=== PATIENT | male | born 1965 | race Caucasian/White ===

== ENCOUNTER → 2016-09-12 | Outpatient (CLI) | payer BC ==
[~2016-09-12] MED LIST: ABACAVIR PO; ABILIFY 5 MG TAB5 M1 PO; ACETAMINOPHEN-1 EAC1 PO; AMBEREN OR; AMBIEN; AMBIEN CR12.5 MG PO; AMBIEN OR; AMBIENCR PO; ARIPIPRAZOLE5 MG PO; ASPIR 8181 MG PO; ATIVAN1 MG PO; ATORVASTATIN PO; BENTYL 20 MG TA20 M1 PO; CALCIUM 600 +1 EAC1 OR; CALCIUM 600 +1 EAC1 PO; CARAFATE1 GM/10 ML PO; CELEXA 20 MG TA20 MG PO; CHANTIX1 MG PO; CIPRO500 MG PO; CITALOPRAM PO; CLONAZEPAM; CLONAZEPAM 0.50.5 M1 PO; CLONAZEPAM 1 MG1 M1 PO; COLACE100 MG PO; DEPO-TESTO100 MG/1 M IM; DEPO-TESTO200 MG/1 M IM; DESYREL100 MG PO; DIFLUCAN100 MG PO; EPZICOM; EPZICOM PO; EPZICOM1 TA1 PO; FISH OIL 1,0001 EAC5 PO; FISH OIL 1,0001 EAC7 OR; FISHOIL PO; FLAGYL500 MG PO; FLEXERIL PO; FLUCONAZOLE 10100 MG PO; HYDROCODONE-AP1 EAC6 PO; HYDROCODONE-APA1 TA1 PO; HYTRIN 5 M5 MG/1 CAP PO; LAMIVUDINE PO; LEXAPRO20 MG PO; LEXIVA700 MG PO; LIPITOR; LIPITOR10 MG PO; LIPITOR20 MG PO; LISINOPRIL10 MG OR; LISINOPRIL20 MG PO; LOMOTIL TABLET1 EACH PO; LONOX PO; LUNESTA3 MG PO; METOCLOPRAMIDE10 MG PO; MULTIVITAMINS PO; NABUMETONE 500500 M1 PO; NAPROSYN500 MG PO; NEURONTIN 300300 M1 PO; NEURONTIN 300M300 M2 PO; NORCO 10-325 T1 EACH PO; NORCO 5-325 TA1 EACH PO; NORCO 7.5-3251 EACH PO; NORFLEX100 MG PO; NORVIR100 M1 PO; NORVIR100 MG PO; NYSTATIN 1100000 U/M SW&SWALLOW; OMEPRAZOLE PO; OMEPRAZOLE40 MG; OMEPRAZOLE40 MG PO; ONDANSETRON HCL4 M2 PO; PERCOCET 10-321 EACH PO; PERCOCET PO; PRILOSEC40 MG PO; PROPRANOLOL 1010 MG PO; RELAFEN750 MG PO; RISPERDAL; ROVIN-CF OF TA1 EACH OR; TAMSULOSIN HCL0.4 M1 PO; VALTREX1000 MG PO; VITAMIN B-12500 MCG PO; XANAX 0.5 MG0.5 MG PO; XANAX XR1 MG PO; XANAX1 MG PO; ZOFRAN ODT4 MG DISSOLVE; ZOFRAN ODT4 MG PO; ZOLPIDEM TART12.5 M1 PO; ZOLPIDEM TART12.5 MG PO; [UNRECOGNIZED DRUG - OTHER]
== END ==
LOC: RAD 10:07
DX: M48.54XA Collapsed vertebra, not elsewhere classified, thoracic region, initial encounter for fracture (principal)

== ENCOUNTER 2016-10-05 16:50 | Emergency (ER) | payer BC ==
[~2016-10-05] VITALS: Ht 175.3 cm; Wt 79.4 kg
[2016-10-05 17:21] LABS: ABSOLUTE NEUTROPHILS 5.6 thou/uL (1.4-8.2); BASOPHILS 0.4 % (0.0-2.0); EOSINOPHILS 0.7 % (0.0-3.0); HEMATOCRIT 44.9 % (42.0-52.0); HEMOGLOBIN 15.4 gm/dL (14.0-18.0); LYMPHOCYTES 29.5 % (24.0-44.0); MCH 30.6 pg (26.0-34.0); MCHC 34.4 g/dL (28.0-37.0); MCV 89.1 fL (80.0-100.0); MONOCYTES 4.4 % (1.0-8.0); PLATELET COUNT 284 thou/uL (150-400); RBC 5.04 mil/uL (4.50-6.00); RDW 15.2 % (10.5-14.5); WBC 8.7 thou/uL (4.0-11.0)
[2016-10-05 17:22] LABS: MANUAL DIFF NO
[2016-10-05 17:30] LABS: CALCIUM 9.4 mg/dL (8.5-10.1); POTASSIUM 4.3 mmol/L (3.5-5.1)
[2016-10-05 17:34] LABS: ALBUMIN 4.3 g/dL (3.4-5.0); DIRECT BILIRUBIN 0.1 mg/dL (<0.1-0.3); TOTAL BILIRUBIN 0.5 mg/dL (<0.1-1.0); TOTAL PROTEIN 7.3 g/dL (6.4-8.2)
[2016-10-05 18:05] LABS: URINE BILIRUBIN NEGATIVE (Negative); URINE BLOOD NEGATIVE (Negative); URINE COLOR YELLOW; URINE GLUCOSE-RANDOM* NEGATIVE (Negative); URINE KETONES NEGATIVE (Negative); URINE NITRITE NEGATIVE (Negative); URINE PROTEIN (DIPSTICK) NEGATIVE (Negative); URINE UROBILINOGEN 0.2 E.U./dl (0.2-1.0)
[2016-10-05] MEDS ORDERED: BENTYL 20 MG TA20 M1 PO (18:14)
[2016-10-05] MEDS ORDERED: ONDANSETRON HCL4 M2 PO (18:14)
== END 2016-10-05 19:00 | disposition home or self-care (01) ==
LOC: ER 16:50
PROVIDERS: Nurse Practitioner
DX: R11.2 Nausea with vomiting, unspecified (principal); R10.32 Left lower quadrant pain; I10 Essential (primary) hypertension; F17.210 Nicotine dependence, cigarettes, uncomplicated; Z21 Asymptomatic human immunodeficiency virus [HIV] infection status; Z88.8 Allergy status to other drugs, medicaments and biological substances

== ENCOUNTER 2016-11-03 18:00 | Observation (INO) | payer BC ==
[~2016-11-03] VITALS: Ht 175.3 cm; Wt 78.9 kg
--- NOTE | ~2016-11-03 | H ---
[facility] [address] [place] [address] HISTORY AND PHYSICAL Name: PRUDENCIO HINES Room #: 427-P [facility] M..#: [id number] Admission: 11/03/16 Attend Phys: Omari Mullen MD Discharge: Date of : 67 Report #: [id number] THIS REPORT FOR: //name// CC: Ck Mullen DATE OF SERVICE: 11/03/2016 CHIEF COMPLAINT: Rectal bleeding. 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 He reported to straining to have a hard bowel movement and had some bleeding per rectum. After that, he was up walking the aisle on the plane, when he felt lightheaded and passed out. His co-workers were able to help him to a seat and he improved. Once he returned to [place], he went to [facility]. There, he reports a CT scan of the abdomen was obtained, which was unremarkable. He also says that his lab work was unremarkable and he was discharged to home. However, he had another bleeding episode and came to the emergency room here. He said he has not had any rectal bleeding since yesterday afternoon, now approaching almost 24 hours. 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 He is scheduled to see a rectal surgeon later this month for removal. Previously, he has had a normal colonoscopy approximately one year ago. PAST MEDICAL HISTORY: HIV, hypertension, dyslipidemia, testosterone deficiency and chronic thoracic spine pain. He has had a history of abdominal pain with admission and history of admission for GI bleed. PAST SURGICAL HISTORY: Appendectomy. FAMILY HISTORY: Noncontributory. SOCIAL HISTORY: No known chronic alcohol. He does smoke, but he is trying to quit. ALLERGIES: No medication allergies. MEDICATIONS: Please see his lengthy list. He is on 3 antiviral medications, lisinopril, propranolol, Lipitor, Testosterone replacement, omeprazole, hydrocodone and dicyclomine. He was taking Colace at home. REVIEW OF SYSTEMS: Denies headache, chest pain, nausea, vomiting, dysuria, syncope or fall. [address] [address] HISTORY AND PHYSICAL Name: PRUDENCIO HINES Room #: [address] [place] [address] Clarissa#: [id number] Admission: 11/03/16 Attend Phys: Omari Mullen MD Discharge: Date of : 67 Report #: [id number] PHYSICAL EXAMINATION: VITAL SIGNS: Temperature 36.4, pulse 65, respirations 17, blood pressure 139/89 and O2 sat 99% on room air. GENERAL: He is awake and alert, in no distress. LUNGS: Clear. HEART: Regular. ABDOMEN: Soft. Normoactive bowel sounds. EXTREMITIES: No edema. ASSESSMENT: 1. Lower gastrointestinal bleed. 2. Hypertension. 3. Human immunodeficiency virus. 4. Essential tremor. 5. Recent syncopal episode, likely sounds vasovagal, following bowel movement yesterday. PLAN: I will continue his medications from home, other than his aspirin. I will ask Dr. Garcia to see him to see if another flexible sigmoidoscopy is indicated. I will lower his pain medication which may be contributing to chronic abdominal crampy pain, but also clearly with the constipation, try lactulose and stool softeners. This will probably be an ongoing issue until he has surgical treatment for the condyloma. <ELECTRONICALLY SIGNED> By: Ck De La Cruz MD 11/05/16 0959 1042 1143 Ck De La Cruz MD /nt
--- NOTE | ~2016-11-03 | D ---
[facility] [place] [address] [place] [address] DISCHARGE SUMMARY Name: PRUDENCIO HINES Room #: 427-P [facility] Joycelyn Romo#: [id number] Admission: 11/03/16 Attend Phys: Omari Mullen MD Discharge: 11/05/16 Date of : 67 Report #: [id number] THIS REPORT FOR: //name// CC: Ck Mullen DATE OF SERVICE: 11/05/2016 FINAL DIAGNOSES: 1. Lower gastrointestinal bleed. 2. Internal hemorrhoid. 3. Chronic abdominal pain. 4. Constipation induced ____. 5. Human immunodeficiency virus. 6. Chronic thoracic back pain. HOSPITAL COURSE: The patient was admitted with abdominal pain and lower GI bleed. Hemoglobin remained stable here and he had no further bleeding. He has had a recent flex sig, which revealed internal hemorrhoid and internal condyloma with anal fissure. GI felt this was the source of his bleeding. He is scheduled to have surgical excision later in the month as an outpatient. Other home medications were continued. We did decrease the hydrocodone. Add lactulose to help alleviate his constipation. PHYSICAL EXAMINATION: GENERAL: On the day of discharge, he is awake and alert. VITAL SIGNS: Stable. LUNGS: Clear. HEART: Regular. ABDOMEN: Soft. EXTREMITIES: Showed no edema. We discussed the discharge plan and medications. Disposition to be discharged to home with diet and activity as tolerated. Follow up with his surgeon as scheduled later in the month. Medications will continue with the exception of no aspirin, Anusol-HC suppository daily and decrease hydrocodone to 7.5 mg 2 tabs 4 times a day with plan to slowly wean as an outpatient. <ELECTRONICALLY SIGNED> By: Ck De La Cruz MD 11/06/16 0957 1002 2210 Ck De La Cruz MD /nt
[2016-11-03 18:01] VITALS: BP 144/94
[2016-11-03 19:54] LABS: ABSOLUTE NEUTROPHILS 3.7 thou/uL (1.4-8.2); BASOPHILS 0.4 % (0.0-2.0); EOSINOPHILS 1.8 % (0.0-3.0); HEMATOCRIT 38.8 % (42.0-52.0); HEMOGLOBIN 13.2 gm/dL (14.0-18.0); LYMPHOCYTES 39.4 % (24.0-44.0); MCH 30.2 pg (26.0-34.0); MCV 88.7 fL (80.0-100.0); MONOCYTES 7.3 % (1.0-8.0); PLATELET COUNT 228 thou/uL (150-400); POLYS 51.1 % (36.0-66.0); RBC 4.37 mil/uL (4.50-6.00); RDW 17.4 % (10.5-14.5); WBC 7.2 thou/uL (4.0-11.0)
[2016-11-03 19:56] LABS: MANUAL DIFF NO
[2016-11-03 20:01] LABS: ANION GAP 10 mmol/L (7-16); BUN 11 mg/dL (7-18); CALCIUM 9.1 mg/dL (8.5-10.1); CHLORIDE 108 mmol/L (98-107); CO2 23 mmol/L (21-32); CREATININE 0.9 mg/dL (0.7-1.3); GLUCOSE 90 mg/dL (74-106); POTASSIUM 3.9 mmol/L (3.5-5.1); SODIUM 141 mmol/L (136-145)
[2016-11-03 20:05] LABS: ALKALINE PHOSPHATASE 79 U/L (46-116); DIRECT BILIRUBIN < 0.1 mg/dL (<0.1-0.3); SGOT 22 U/L (15-37); SGPT 22 U/L (30-65); TOTAL BILIRUBIN 0.3 mg/dL (<0.1-1.0); TOTAL PROTEIN 7.2 g/dL (6.4-8.2)
[2016-11-03 23:09] VITALS: BP 133/85
[2016-11-04 04:23] VITALS: BP 130/63
[2016-11-04 06:17] LABS: HEMOGLOBIN 12.4 gm/dL (14.0-18.0); MCHC 33.6 g/dL (28.0-37.0); MCV 89.3 fL (80.0-100.0); RBC 4.14 mil/uL (4.50-6.00); RDW 17.3 % (10.5-14.5)
[2016-11-04 07:48] VITALS: BP 139/89
[2016-11-04 16:07] VITALS: BP 142/91
[2016-11-04 20:30] VITALS: BP 127/66
[2016-11-05 04:30] VITALS: BP 118/80
[2016-11-05 07:42] VITALS: BP 133/86
[2016-11-05] MEDS ORDERED: LACTULOSE10 GM/153 PO (09:41)
[2016-11-05] MEDS ORDERED: ZOFRAN ODT4 MG DISSOLVE (09:42)
[2016-11-05] MEDS ORDERED: ANUCORT-HC25 MG RECTAL (09:42)
[2016-11-05] MEDS ORDERED: HYDROCODONE-APA1 TA1 PO (09:44)
[2016-11-05 12:50] VITALS: BP 133/86
[2016-11-05 13:13] VITALS: BP 133/86
== END 2016-11-05 13:15 | disposition home or self-care (01) ==
LOC: ER 18:00 → EROBS 20:58 → 4E 20:58
PROVIDERS: Emergency Medicine
DX: K92.2 Gastrointestinal hemorrhage, unspecified (principal); I10 Essential (primary) hypertension; E78.5 Hyperlipidemia, unspecified; M54.6 Pain in thoracic spine; G89.29 Other chronic pain; G25.0 Essential tremor; R11.2 Nausea with vomiting, unspecified; R55 Syncope and collapse; F41.9 Anxiety disorder, unspecified

== ENCOUNTER 2016-11-21 10:47 | Emergency (ER) | payer BC ==
[~2016-11-21] VITALS: Ht 175.3 cm; Wt 73.5 kg
[~2016-11-21 10:47] MED LIST changes: +ANUCORT-HC25 MG RECTAL; +LACTULOSE10 GM/153 PO
[2016-11-21 12:04] LABS: ABSOLUTE NEUTROPHILS 5.7 thou/uL (1.4-8.2); BASOPHILS 0.3 % (0.0-2.0); EOSINOPHILS 0.2 % (0.0-3.0); HEMATOCRIT 41.8 % (42.0-52.0); HEMOGLOBIN 14.1 gm/dL (14.0-18.0); LYMPHOCYTES 9.9 % (24.0-44.0); MCH 30.2 pg (26.0-34.0); MCHC 33.7 g/dL (28.0-37.0); MCV 89.7 fL (80.0-100.0); MONOCYTES 1.5 % (1.0-8.0); PLATELET COUNT 184 thou/uL (150-400); POLYS 88.1 % (36.0-66.0); RBC 4.66 mil/uL (4.50-6.00); RDW 18.8 % (10.5-14.5); WBC 6.4 thou/uL (4.0-11.0)
[2016-11-21 12:05] LABS: MANUAL DIFF NO
[2016-11-21 12:10] LABS: CALCIUM 9.5 mg/dL (8.5-10.1); CREATININE 0.9 mg/dL (0.7-1.3); POTASSIUM 4.2 mmol/L (3.5-5.1)
[2016-11-21 12:14] LABS: ALBUMIN 4.1 g/dL (3.4-5.0); DIRECT BILIRUBIN 0.1 mg/dL (<0.1-0.3); TOTAL BILIRUBIN 0.5 mg/dL (<0.1-1.0); TOTAL PROTEIN 7.6 g/dL (6.4-8.2)
[2016-11-21 14:19] LABS: URINE BILIRUBIN NEGATIVE (Negative); URINE BLOOD NEGATIVE (Negative); URINE COLOR YELLOW; URINE GLUCOSE-RANDOM* TRACE (Negative); URINE KETONES NEGATIVE (Negative); URINE LEUKOCYTES-REFLEX NEGATIVE (Negative); URINE PROTEIN (DIPSTICK) NEGATIVE (Negative); URINE UROBILINOGEN 0.2 E.U./dl (0.2-1.0)
[2016-11-21] MEDS ORDERED: ZOFRAN ODT4 MG PO (14:41)
[2016-11-21] MEDS ORDERED: HYDROCODONE-APA1 TA1 PO (14:41)
== END 2016-11-21 14:43 | disposition home or self-care (01) ==
LOC: ER 10:47
PROVIDERS: Emergency Medicine
DX: R11.2 Nausea with vomiting, unspecified (principal); R10.84 Generalized abdominal pain; R19.7 Diarrhea, unspecified; I10 Essential (primary) hypertension; F17.210 Nicotine dependence, cigarettes, uncomplicated; Z91.048 Other nonmedicinal substance allergy status

== ENCOUNTER → 2017-01-17 | Outpatient (CLI) | payer BC ==
[~2017-01-17] VITALS: Ht 175.3 cm; Wt 76.3 kg
[~2017-01-17] MED LIST changes: +VOLTAREN GEL 1100 G1 TOP
--- NOTE | ~2017-01-17 | HPC ---
[facility] [address] [place] [address] PAIN MANAGEMENT CONSULTATION Name: HINESPRUDENCIO RODRIGUEZ Room #: [facility] Samuel.#: [id number] Admission: 01/17/17 Attend Phys: Colt Marquez DO Discharge: Date of : 67 Report #: [id number] THIS REPORT FOR: //name// CC: Ck Marquez The patient is a very pleasant 52-year-old gentleman, last seen in the pain clinic on March 2016 for cervical radicular symptoms. The patient has pain in the neck, right upper shoulder and upper arm. He has had excellent relief with cervical steroid injections, last injection was 04/12/2016. Prior to had 2 injections in December of 2012 and 2 injections beginning of 2012. He returns to pain clinic today noting symptoms have begun to recur with pain in the neck, upper left scapula and shoulder. Pain is exacerbated with cervical range of motion. He incidentally has some mid back pain. Prior had been found to have an old T11 compression fracture at this level. The patient rates his pain a 9 on a VAS, notes the pain is exacerbated with range of motion, bending and pressure. PHYSICAL EXAMINATION: Shows a 52-year-old gentleman, BMI is 24.8 kilograms per meter squared. Vital signs stable. Grossly positive Lhermitte's. Pain going into the right deltoid. Strength is diminished. Tenderness over the shoulder itself. No discrete trigger points noted. He does have some midline tenderness in the low thoracic area. No discrete trigger points are noted here either. ASSESSMENT: Symptomatic cervical radiculopathy by clinical exam and history. RECOMMENDATION: Cervical epidural injection under fluoroscopy today. Both provided prescription for Voltaren gel topically to the mid back area. Follow up simply as needed. ASSESSMENT: Symptomatic cervical radiculopathy, greater than 60% improvement for many months following prior cervical epidural injection. He is status post anterior cervical disk fusion at C5-C6. PROCEDURE: Midline epidural injection under fluoroscopy. INDICATION: Cervical radiculopathy status post ACDF. PROCEDURE NOTE: After written and informed consent was obtained including risk of dural puncture, spinal cord trauma, paralysis and increased pain, the patient was taken to the fluoroscopy suite and placed in the prone position, with appropriate abdominal bolstering, neck was flexed, palms under the thighs. Skin was prepped with ChloraPrep. Sterile draping was applied. Skin wheal with 1% Xylocaine was raised. A 22-gauge 3-1/2 inch epidural Tuohy needle was placed via a midline approach at the C7-T1 interspace, advanced under biplanar [address] [address] PAIN MANAGEMENT CONSULTATION Name: PRUDENCIO HINES Room #: [facility] Clarissa#: [id number] Admission: 01/17/17 Attend Phys: Colt Marquez DO Discharge: Date of : 67 Report #: [id number] fluoroscopy using continuous loss of resistance. With appropriate loss of resistance at the expected depth on lateral view, the glass loss of resistance syringe was disconnected. A low volume extension tubing was connected to the needle and a 5 mL syringe. Negative aspiration for cerebrospinal fluid or blood was noted. A 1 mL of Omnipaque was injected which showed spread within the epidural space on biplanar fluoroscopy. This was followed with 80 mg of triamcinolone plus 1 mL of 1.5% preservative Xylocaine. Needle was withdrawn to the interspinous ligament, 0.5 mL of Xylocaine was used to flush the needle. The needle was then completely withdrawn. The area was cleansed. Band-Aid was applied. The patient was allowed to move off the procedure table and ambulated to the recovery room, monitored for an appropriate period of time, discharged in good and stable condition. By: 1523 2228 Colt Marquez DO /giovany
[2017-01-17 14:05] VITALS: BP 137/82
== END | disposition home or self-care (01) ==
LOC: PAIN 07:09
DX: M54.12 Radiculopathy, cervical region (principal); F17.210 Nicotine dependence, cigarettes, uncomplicated; Z98.890 Other specified postprocedural states; Z79.899 Other long term (current) drug therapy

== ENCOUNTER 2017-02-12 17:26 | Emergency (ER) | payer BC ==
[~2017-02-12] VITALS: Ht 175.3 cm; Wt 79.4 kg
[2017-02-12 18:15] LABS: URINE BILIRUBIN NEGATIVE (Negative); URINE BLOOD NEGATIVE (Negative); URINE COLOR YELLOW; URINE GLUCOSE-RANDOM* NEGATIVE (Negative); URINE KETONES NEGATIVE (Negative); URINE LEUKOCYTES-REFLEX NEGATIVE (Negative); URINE PROTEIN (DIPSTICK) NEGATIVE (Negative); URINE SPECIFIC GRAVITY 1.015 (1.003-1.035); URINE UROBILINOGEN 0.2 E.U./dl (0.2-1.0)
[2017-02-12 18:25] LABS: ABSOLUTE NEUTROPHILS 7.7 thou/uL (1.4-8.2); BASOPHILS 0.6 % (0.0-2.0); EOSINOPHILS 0.4 % (0.0-3.0); HEMATOCRIT 42.9 % (42.0-52.0); HEMOGLOBIN 14.6 gm/dL (14.0-18.0); LYMPHOCYTES 18.5 % (24.0-44.0); MCH 32.3 pg (26.0-34.0); MONOCYTES 5.6 % (1.0-8.0); PLATELET COUNT 218 thou/uL (150-400); POLYS 74.9 % (36.0-66.0); RBC 4.51 mil/uL (4.50-6.00); WBC 10.2 thou/uL (4.0-11.0)
[2017-02-12 18:30] LABS: MANUAL DIFF NO
[2017-02-12 18:44] LABS: CALCIUM 8.9 mg/dL (8.5-10.1); CREATININE 1.1 mg/dL (0.7-1.3); POTASSIUM 4.2 mmol/L (3.5-5.1)
[2017-02-12 18:50] LABS: ALBUMIN 3.7 g/dL (3.4-5.0); TOTAL BILIRUBIN 0.4 mg/dL (<0.1-1.0); TOTAL PROTEIN 6.7 g/dL (6.4-8.2)
[2017-02-12] MEDS ORDERED: REGLAN 10 MG TA10 MG PO ×3 (19:20→19:23)
== END 2017-02-12 19:38 | disposition home or self-care (01) ==
LOC: ER 17:26
PROVIDERS: Physician Assistant
DX: R10.32 Left lower quadrant pain (principal); R11.2 Nausea with vomiting, unspecified; I10 Essential (primary) hypertension; K64.9 Unspecified hemorrhoids; F17.210 Nicotine dependence, cigarettes, uncomplicated; Z21 Asymptomatic human immunodeficiency virus [HIV] infection status; Z88.8 Allergy status to other drugs, medicaments and biological substances

== ENCOUNTER 2017-04-30 15:44 | Emergency (ER) | payer BC ==
[~2017-04-30] VITALS: Ht 175.3 cm; Wt 74.4 kg
[~2017-04-30 15:44] MED LIST changes: +REGLAN 10 MG TA10 MG PO
[2017-04-30] MEDS ORDERED: LOMOTIL TABLET1 EACH PO (15:59)
[2017-04-30 16:06] LABS: ABSOLUTE NEUTROPHILS 3.6 thou/uL (1.4-8.2); BASOPHILS 0.7 % (0.0-2.0); EOSINOPHILS 1.6 % (0.0-3.0); HEMATOCRIT 37.8 % (42.0-52.0); HEMOGLOBIN 12.7 gm/dL (14.0-18.0); LYMPHOCYTES 37.5 % (24.0-44.0); MCH 33.2 pg (26.0-34.0); MCHC 33.5 g/dL (28.0-37.0); MCV 99.2 fL (80.0-100.0); MONOCYTES 10.4 % (1.0-8.0); PLATELET COUNT 332 thou/uL (150-400); POLYS 49.8 % (36.0-66.0); RBC 3.81 mil/uL (4.50-6.00); RDW 16.5 % (10.5-14.5); WBC 7.3 thou/uL (4.0-11.0)
[2017-04-30 16:21] LABS: CALCIUM 9.2 mg/dL (8.5-10.1); CREATININE 0.8 mg/dL (0.7-1.3); POTASSIUM 3.9 mmol/L (3.5-5.1)
[2017-04-30 16:25] LABS: ALBUMIN 3.1 g/dL (3.4-5.0); TOTAL BILIRUBIN 0.4 mg/dL (<0.1-1.0); TOTAL PROTEIN 6.5 g/dL (6.4-8.2)
[2017-04-30 17:03] LABS: URINE BILIRUBIN NEGATIVE (Negative); URINE BLOOD NEGATIVE (Negative); URINE CLARITY CLEAR; URINE COLOR YELLOW; URINE GLUCOSE-RANDOM* NEGATIVE (Negative); URINE KETONES NEGATIVE (Negative); URINE LEUKOCYTES-REFLEX NEGATIVE (Negative); URINE NITRITE-REFLEX NEGATIVE (Negative); URINE PROTEIN (DIPSTICK) NEGATIVE (Negative); URINE SPECIFIC GRAVITY <= 1.005 (1.005-1.035); URINE UROBILINOGEN 0.2 E.U./dl (0.2-1.0)
[2017-04-30] MEDS ORDERED: REGLAN 10 MG TA10 MG PO (18:21)
[2017-04-30] MEDS ORDERED: LEVSIN-SL0.125 MG PO (18:27)
[2017-04-30 18:40] VITALS: BP 129/87
== END 2017-04-30 18:38 | disposition home or self-care (01) ==
LOC: ER 15:44
PROVIDERS: Physician Assistant
DX: R11.2 Nausea with vomiting, unspecified (principal); R19.7 Diarrhea, unspecified; R10.32 Left lower quadrant pain; I10 Essential (primary) hypertension; K64.9 Unspecified hemorrhoids; F17.210 Nicotine dependence, cigarettes, uncomplicated; Z21 Asymptomatic human immunodeficiency virus [HIV] infection status

== ENCOUNTER 2017-05-26 23:31 | Emergency (ER) | payer BC ==
[~2017-05-26] VITALS: Ht 175.3 cm; Wt 65.8 kg
--- NOTE | ~2017-05-26 | EKG ---
[place] [address] [place] [address] ELECTROCARDIOGRAM REPORT Name: PRUDENCIO HINES [id number] Admission: 05/26/17 Attend Phys: Discharge: Date of : 67 Report #: [id number] THIS REPORT FOR: //name// [facility] ED Test Date: 2017-05-26 Test Time: 23:44:40 Pat Name: PRUDENCIO HINES Department: Room: Gender: Insurance Adviser: CAYETANO : 1965 Requested By: Rosa Carlton Order Number: [id number] MD: James Arroyo Measurements Intervals [place] Rate: 64 P: IA: QRS: 15 QRSD: 108 T: 58 QT: 472 QTc: 487 Interpretive Statements Sinus rhythm No significant abnormality Baseline wander in lead(s) V2 No previous ECGs available for comparison Electronically Signed On 05-27-2017 9:00:32 GALLERY OR MUSEUM ATTENDANT by James Arroyo [email or web address] <ELECTRONICALLY SIGNED> By: James Arroyo MD, [facility] 05/27/17 0900 2344 2344 James Arroyo MD, FACC /EPI
[~2017-05-26 23:31] MED LIST changes: +LEVSIN-SL0.125 MG PO
[2017-05-26 23:49] LABS: URINE BILIRUBIN NEGATIVE (Negative); URINE BLOOD NEGATIVE (Negative); URINE CLARITY CLEAR; URINE COLOR YELLOW; URINE GLUCOSE-RANDOM* NEGATIVE (Negative); URINE KETONES NEGATIVE (Negative); URINE LEUKOCYTES NEGATIVE (Negative); URINE NITRITE NEGATIVE (Negative); URINE PROTEIN (DIPSTICK) NEGATIVE (Negative); URINE UROBILINOGEN 0.2 E.U./dl (0.2-1.0)
[2017-05-26 23:58] LABS: HEMATOCRIT 42.3 % (42.0-52.0); HEMOGLOBIN 14.4 gm/dL (14.0-18.0); MCH 33.4 pg (26.0-34.0); MCHC 34.1 g/dL (28.0-37.0); MCV 97.9 fL (80.0-100.0); PLATELET COUNT 243 thou/uL (150-400); RBC 4.32 mil/uL (4.50-6.00); RDW 14.6 % (10.5-14.5); WBC 6.5 thou/uL (4.0-11.0)
[2017-05-27 00:07] LABS: CALCIUM 9.3 mg/dL (8.5-10.1)
[2017-05-27 00:13] LABS: ALBUMIN 4.2 g/dL (3.4-5.0); DIRECT BILIRUBIN 0.1 mg/dL (<0.1-0.3); TOTAL BILIRUBIN 0.4 mg/dL (<0.1-1.0)
[2017-05-27] MEDS ORDERED: PROMS25 WY RECTAL (00:30)
[2017-05-27] MEDS ORDERED: PHENERGAN 25 MG25 M1 PO (00:30)
[2017-05-27] MEDS ORDERED: ZOFRAN ODT4 MG PO (00:30)
[2017-05-27] MEDS ORDERED: POTASSIUM20 PO (00:55)
[2017-05-27 01:00] LABS: ABSOLUTE NEUTROPHILS 3.3 thou/uL (1.4-8.2); ANISOCYTOSIS SLIGHT
[2017-05-27 01:26] VITALS: BP 163/100
[2017-05-30] MEDS ORDERED: ZOFRAN ODT4 MG DISSOLVE (08:58)
[2017-05-30] MEDS ORDERED: BENTYL 10 MG CA10 M1 PO (08:58)
[2017-05-30] MEDS ORDERED: HYDROCODON-ACE1 EAC8 PO (08:58)
== END 2017-05-27 01:26 | disposition home or self-care (01) ==
LOC: ER 23:31
PROVIDERS: Emergency Medicine
DX: R11.2 Nausea with vomiting, unspecified (principal); R19.7 Diarrhea, unspecified; R07.89 Other chest pain; G89.29 Other chronic pain; R10.32 Left lower quadrant pain; E87.6 Hypokalemia; I10 Essential (primary) hypertension; K64.9 Unspecified hemorrhoids; Z76.5 Malingerer [conscious simulation]; Z21 Asymptomatic human immunodeficiency virus [HIV] infection status

== ENCOUNTER 2017-05-27 13:50 | Inpatient (IN) | payer BC ==
[~2017-05-27] VITALS: Ht 175.3 cm; Wt 78.9 kg
--- NOTE | ~2017-05-27 | P ---
[facility] [place] [address] PROCEDURE REPORT Name: PRUDENCIO HINES JR Room #: 364-P ADM IN M.R.#: [id number] Admission: 05/27/17 Attend Phys: Ivett De La Cruz MD Discharge: Date of : 67 Report #: [id number] THIS REPORT FOR: //name// CC: IVETT De La Cruz PATIENT OF: Dr. Ivett De La Cruz. PROCEDURE: Extended flexible sigmoidoscopy to the terminal ileum. INDICATION FOR PROCEDURE: Lower abdominal pain of undetermined etiology. Informed consent for this procedure was obtained prior to the administration of any medication. The risks of the procedure which include bleeding, perforation, infection, complications of sedation and the possibility I could miss something have been explained to the patient and he has indicated his consent by signing. Propofol was slowly titrated before and during this procedure along with ketamine by the anesthesia service. Digital rectal exam was performed and no abnormalities were discovered. The patient has a lax anal sphincter. Then, the InfoScoutinon colonoscope was introduced through the anal sphincter and advanced under direct visualization to the terminal ileum. Findings were noted on withdrawal of the scope. The terminal ileal mucosa appeared normal. Cecum, normal mucosa. Ascending colon, normal mucosa. Hepatic flexure, normal mucosa. Transverse colon, normal mucosa. Splenic flexure, normal mucosa. Descending colon, normal mucosa. Sigmoid colon, normal mucosa. Rectum, normal mucosa. Retroflex view did not reveal any further abnormalities. The scope was withdrawn. The patient went to the recovery area in stable condition. He tolerated the procedure well. IMPRESSION AND RECOMMENDATIONS: Normal extended flexible sigmoidoscopy to the terminal ileum. Recommendations are for him to start on a regular diet. I do not believe that he has had any further stools since he was admitted. Thank you very much once again for allowing me to participate in his care. <ELECTRONICALLY SIGNED> By: Shelbi Al DO 05/30/17 0033 1714 2142 Shelbi Al DO /nt
--- NOTE | ~2017-05-27 | H ---
[facility] [place] [address] HISTORY AND PHYSICAL Name: PRUDENCIO HINES Room #: 364-P [facility] IN M.R.#: [id number] Admission: 05/27/17 Attend Phys: Ck De La Cruz MD Discharge: Date of : 67 Report #: [id number] THIS REPORT FOR: //name// CC: Ck De La Cruz DATE OF SERVICE: 05/27/2017 CHIEF COMPLAINT: Abdominal pain. HISTORY OF PRESENT ILLNESS: The patient is a 52-year-old gentleman who was admitted from the office today with abdominal pain, nausea, vomiting and diarrhea. He has had several ER trips in the last day, coupled with several ER trips in April for abdominal pain. He complains of intermittent pain in the left lower quadrant. He has also reported vomiting and is unable to keep any of his medicines down along with diarrhea. About 3 months ago, he was treated for C. diff colitis and finished treatment for that and at some point returned of normal stools. He has had recent x-rays with fecal impaction through an ER visit, but now says he has been having diarrhea. PAST MEDICAL HISTORY: Hypertension; anxiety; depression; HIV, on chronic medication; diverticulitis. He has had a history of bleeding internal hemorrhoids and a history of a rectal HPV lesion that was resected earlier this year. He has had chronic right upper back pain and has had a cervical fusion in the past, also a history of dyslipidemia, testosterone deficiency. PAST SURGICAL HISTORY: As above. FAMILY HISTORY: Unknown. SOCIAL HISTORY: He has got a 64-vlhk-pery history of smoking. He has tried to quit several times, unsuccessful. 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 He does have a partner. ALLERGIES: No known drug allergies. MEDICATIONS: Propranolol 10 mg twice a day, Zofran p.r.n., Reglan p.r.n., hydrocodone, omeprazole, Colace, Lomotil, Lexiva mg at bedtime, Lexapro 20 mg, multivitamin, lisinopril 20 mg, Lipitor 10 mg, Abilify 5 mg, Epzicom daily, ritonavir 1 daily, Depo-Testosterone 100 mg every other week IM. REVIEW OF SYSTEMS: He complains of weight loss. Denies any difficulty swallowing, upper GI bleeding symptoms, chest pain, shortness of breath, dysuria, myalgias, arthralgias, syncope. OBJECTIVE: VITAL SIGNS: Temperature 36.6, pulse 112, respirations 16, blood pressure [facility] [address] [place] [address] HISTORY AND PHYSICAL Name: PRUDENCIO HINES Room #: 364-P [facility] IN [facility].#: [id number] Admission: 05/27/17 Attend Phys: Ck De La Cruz MD Discharge: Date of : 67 Report #: [id number] 123/95. GENERAL: He is awake and alert. HEAD AND NECK: Unremarkable. LUNGS: Clear. HEART: Regular, no murmur. ABDOMEN: Soft, normoactive bowel sounds, slightly tender to deep palpation in the left lower quadrant. No rebound or guarding. EXTREMITIES: No cyanosis, clubbing or edema. NEUROLOGIC: Motor strength is intact. He is alert and oriented. Gait is normal. He was walking under his own power. ASSESSMENT: 1. Abdominal pain with nausea and vomiting. 2. Human immunodeficiency virus. 3. Diverticulosis. 4. Hypertension. 5. Chronic pain syndrome. PLAN: I will repeat his CT to ensure he does not have a bowel obstruction or signs of diverticulitis. I have asked Dr. Garcia to see him in consultation for consideration of flexible sigmoidoscopy or even upper GI to see if he has any gastric lesions. He has had a history of fungal esophagitis in the past, but that was more associated with difficulty swallowing, which he is not really complaining of now. I will ask Dr. Arreola to see him in reviewing his HIV treatment. There is also noted some concerns about narcotic misuse based on ER notes from last night. This will be reviewed and discussed with him as well. Limit to pain medication for now until we get a better idea if there is active pathology. <ELECTRONICALLY SIGNED> By: Ck De La Cruz MD 05/28/17 0901 1653 1722 Ck De La Cruz MD /nt
--- NOTE | ~2017-05-27 | HC ---
[facility] [place] [address] CONSULTATION Name: PRUDENCIO HINES Room #: 364-P [facility] IN M.R.#: [id number] Admission: 05/27/17 Attend Phys: Ck De La Cruz MD Discharge: Date of : 67 Report #: [id number] THIS REPORT FOR: //name// CC: Ck De La Cruz REASON FOR CONSULTATION: I was asked to evaluate the patient concerning abdominal pain in the setting of HIV. HISTORY OF PRESENT ILLNESS: The patient is a 52-year-old with longstanding HIV infection. He has had recurring episodes of lower abdominal pain. I actually evaluated him in the hospital on 03/10/2016, with similar complaints of left lower quadrant pain. At that time, we identified no specific cause. He was treated with a course of ciprofloxacin and metronidazole and improved. Since then, he was diagnosed with C. difficile colitis and has undergone treatment for that. He presents with a 1-week history of left lower quadrant abdominal pain associated with nausea, vomiting and profuse diarrhea. No fever or chills, although he has had some sweats. His HIV control has been satisfactory with CD4 count 800 and undetectable RNA. He reports no change in his antiretroviral program in the last 5 years. 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 His partner has been with him for approximately 15 years. REVIEW OF SYSTEMS: Notes no rash, cough or sputum production. Mild headache. Nausea mostly is after eating. No flank pain, no dysuria or frequency. No arthritis. PAST MEDICAL HISTORY: Anxiety, depression, hypertension, hyperlipidemia, diverticulosis, gastroesophageal reflux, laura esophagitis, and previous foot surgery. FAMILY HISTORY: Noncontributory. SOCIAL HISTORY: Minimal smoking history. No significant alcohol intake. No tuberculosis history. ALLERGIES: None. MEDICATIONS: Epzicom, Norvir, and Lexiva. He was started on ciprofloxacin, metronidazole, and p.o. vancomycin last evening. PHYSICAL EXAMINATION: VITAL SIGNS: He is afebrile, hemodynamically stable. GENERAL: He is alert, cooperative and pleasant, in no acute distress. SKIN: Unremarkable. LYMPH: Unremarkable. HEENT: Unremarkable. CHEST: Clear. [facility] [address] [place] [address] CONSULTATION Name: PRUDENCIO HINES Room #: 364-P [facility] IN ..#: [id number] Admission: 05/27/17 Attend Phys: Ck De La Cruz MD Discharge: Date of : 67 Report #: [id number] HEART: Regular. ABDOMEN: Soft with tenderness in the left lower quadrant. No rebound, no guarding. PERIANAL: Unremarkable. EXTREMITIES: Unremarkable. NEUROLOGIC: Nonfocal. LABORATORY STUDIES: Stool for bacterial culture so far negative. Cryptosporidium antigen negative. CT scan of the abdomen and pelvis unremarkable. Sedimentation rate 25. Sodium 142, potassium 3.8, bicarbonate 24, creatinine 0.9. Liver function tests normal. Lipase normal. Hemoglobin 13, platelet count 246,000, white count 4.6. Urinalysis unremarkable. IMPRESSION: A 52-year-old with longstanding human immunodeficiency virus under good control, presents with further gastrointestinal issues associated with some nausea, vomiting, and diarrhea. He has left lower quadrant pain in the setting of diverticulosis. So far, no evidence of Clostridium difficile colitis. Studies are pending. We would recommend continuing his antibiotic coverage and we will obtain ova and parasite examination. Previous endoscopies have failed to identify any specific issue other than his known diverticulosis. The patient may have a component of irritable bowel and to make sure there is no inflammatory component at this time. <ELECTRONICALLY SIGNED> By: Mj Arreola MD 05/29/17 1026 1323 1522 Mj Arreola MD /nt
--- NOTE | ~2017-05-27 | D ---
[facility] [place] [address] DISCHARGE SUMMARY Name: PRUDENCIO HINES Room #: 364-P [facility] IN M.R.#: [id number] Admission: 05/27/17 Attend Phys: Ck De La Cruz MD Discharge: 05/30/17 Date of : 67 Report #: [id number] THIS REPORT FOR: //name// CC: Ck De La Cruz FINAL DIAGNOSES: 1. Abdominal pain. 2. Irritable bowel syndrome. 3. Chronic human immunodeficiency virus infection. 4. Hypertension. HOSPITAL COURSE: The patient was admitted with complaints of abdominal pain with nausea, vomiting, and diarrhea. Repeat C. diff stools were negative and other stool cultures were negative. Dr. Mj rAreola followed him and eventually discontinued empiric antibiotics. There were no other signs of acute infection. CT of the abdomen was negative. Other lab data was unremarkable. GI saw him and performed a flex sig, which showed no inflammatory lesions in the lower portion of the colon. Ultimately, there was no definitive diagnosis for his pain, but there was no acute infectious or inflammatory process. Ultimately, the treatment plan was for irritable bowel syndrome. 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 This needs to be treated via usual IBS medications. I also encouraged him to recontact his psychiatrist to consider additional counseling for biofeedback control. I told him we would work through the office as an outpatient to continue to wean down his hydrocodone use. I told him if there were any other concerns of additional prescriptions being obtained and other means that medications be discontinued. For now, he will receive hydrocodone 7.5 mg 5-day supply with return to the office. On the day of discharge, he was awake and alert with stable vital signs and exam was unremarkable including normal bowel sounds and no rebound or guarding. His lungs were clear. He was up and walking the halls normally. DISPOSITION: He is discharged to home with diet and activity as tolerated. Resume all home medications plus dicyclomine 10 mg q.i.d., Zofran oral tablet p.r.n. q.8 hours and hydrocodone 7.5 mg q.4 hours p.r.n. pain, #30. To follow up in 5 days. <ELECTRONICALLY SIGNED> By: Ck De La Cruz MD 06/05/17 0831 0905 0942 Ck De La Cruz MD /nt
[~2017-05-27 13:50] MED LIST changes: +PHENERGAN 25 MG25 M1 PO; +POTASSIUM20 PO; +PROMS25 WY RECTAL
[2017-05-27 14:45] VITALS: BP 123/95
[2017-05-27 16:51] LABS: ABSOLUTE NEUTROPHILS 2.4 thou/uL (1.4-8.2); EOSINOPHILS 1.1 % (0.0-3.0); HEMATOCRIT 39.2 % (42.0-52.0); LYMPHOCYTES 36.6 % (24.0-44.0); MCH 32.8 pg (26.0-34.0); MCHC 33.1 g/dL (28.0-37.0); MCV 99.1 fL (80.0-100.0); MONOCYTES 8.3 % (1.0-8.0); PLATELET COUNT 246 thou/uL (150-400); RBC 3.96 mil/uL (4.50-6.00); RDW 14.8 % (10.5-14.5); WBC 4.6 thou/uL (4.0-11.0)
[2017-05-27 16:55] LABS: MAGNESIUM 1.9 mg/dL (1.8-2.4)
[2017-05-27 17:06] LABS: ALBUMIN 3.6 g/dL (3.4-5.0); CREATININE 0.9 mg/dL (0.7-1.3); POTASSIUM 3.8 mmol/L (3.5-5.1); TOTAL BILIRUBIN 0.3 mg/dL (<0.1-1.0); TOTAL PROTEIN 6.9 g/dL (6.4-8.2)
[2017-05-27 20:10] VITALS: BP 122/89
[2017-05-28 02:09] LABS: TESTOSTERONE* 429 ng/dL (264-916)
[2017-05-28 05:03] VITALS: BP 139/87
[2017-05-28 08:22] VITALS: BP 145/100
[2017-05-28 12:27] VITALS: BP 136/91
[2017-05-28 16:45] VITALS: BP 169/84
[2017-05-28 20:00] VITALS: BP 147/81
[2017-05-29 05:00] VITALS: BP 140/85
[2017-05-29 06:01] LABS: CALCIUM 8.8 mg/dL (8.5-10.1); CREATININE 0.8 mg/dL (0.7-1.3); POTASSIUM 3.6 mmol/L (3.5-5.1)
[2017-05-29 07:51] VITALS: BP 150/89
[2017-05-29 17:57] VITALS: BP 157/89
[2017-05-29 19:45] VITALS: BP 164/87
[2017-05-30 04:30] VITALS: BP 123/64
[2017-05-30 07:53] VITALS: BP 120/78
[2017-05-30] MEDS ORDERED: BENTYL 10 MG CA10 M1 PO ×2 (08:58)
[2017-05-30] MEDS ORDERED: HYDROCODON-ACE1 EAC8 PO ×2 (08:58)
[2017-05-30] MEDS ORDERED: ZOFRAN ODT4 MG DISSOLVE ×2 (08:58)
[2017-05-30 10:37] VITALS: BP 120/78
== END 2017-05-30 11:16 | disposition home or self-care (01) | DRG 392 ==
LOC: PRE 13:50 → 3W 14:01 → ENTRNSPT 05-30 11:13 → 3W 05-30 11:16
PROVIDERS: Internal Medicine Geriatric Medicine
PROC: 0DJD8ZZ Inspection of Lower Intestinal Tract, Via Natural or Artificial Opening Endoscopic (ICD-10-PCS; principal; 2017-05-29)
DX: K58.9 Irritable bowel syndrome, unspecified (principal); K57.90 Diverticulosis of intestine, part unspecified, without perforation or abscess without bleeding; I10 Essential (primary) hypertension; F41.9 Anxiety disorder, unspecified; F32.9 Major depressive disorder, single episode, unspecified; E78.5 Hyperlipidemia, unspecified; G89.29 Other chronic pain; M54.89 Other dorsalgia; F17.210 Nicotine dependence, cigarettes, uncomplicated; G89.4 Chronic pain syndrome; Z21 Asymptomatic human immunodeficiency virus [HIV] infection status; Z98.1 Arthrodesis status; Z79.899 Other long term (current) drug therapy; Z90.49 Acquired absence of other specified parts of digestive tract; Z82.49 Family history of ischemic heart disease and other diseases of the circulatory system; Z80.1 Family history of malignant neoplasm of trachea, bronchus and lung; Z80.0 Family history of malignant neoplasm of digestive organs; Z80.2 Family history of malignant neoplasm of other respiratory and intrathoracic organs
CPT/HCPCS: 10779; 62110; 62900

== ENCOUNTER 2017-08-24 19:29 | Emergency (ER) | payer BC ==
[~2017-08-24] VITALS: Ht 175.3 cm; Wt 77.1 kg
[~2017-08-24 19:29] MED LIST changes: +BENTYL 10 MG CA10 M1 PO; +HYDROCODON-ACE1 EAC8 PO
[2017-08-24 20:09] LABS: ABSOLUTE NEUTROPHILS 2.5 thou/uL (1.4-8.2); BASOPHILS 0.4 % (0.0-2.0); HEMATOCRIT 38.3 % (42.0-52.0); HEMOGLOBIN 12.5 gm/dL (14.0-18.0); LYMPHOCYTES 47.8 % (24.0-44.0); MCHC 32.7 g/dL (28.0-37.0); MCV 88.7 fL (80.0-100.0); MONOCYTES 9.9 % (1.0-8.0); PLATELET COUNT 264 thou/uL (150-400); POLYS 39.9 % (36.0-66.0); RBC 4.32 mil/uL (4.50-6.00); RDW 17.1 % (10.5-14.5); WBC 6.3 thou/uL (4.0-11.0)
[2017-08-24 20:12] LABS: ANION GAP 7 mmol/L (7-16); BUN 18 mg/dL (7-18); CALCIUM 9.1 mg/dL (8.5-10.1); CHLORIDE 107 mmol/L (98-107); CO2 28 mmol/L (21-32); CREATININE 1.2 mg/dL (0.7-1.3); GLUCOSE 98 mg/dL (74-106); POTASSIUM 4.2 mmol/L (3.5-5.1); SODIUM 142 mmol/L (136-145)
[2017-08-24 20:18] LABS: ALBUMIN 3.9 g/dL (3.4-5.0); DIRECT BILIRUBIN < 0.1 mg/dL (<0.1-0.3); LIPASE 318 U/L (73-393); SGOT 18 U/L (15-37); SGPT 19 U/L (30-65); TOTAL BILIRUBIN 0.3 mg/dL (<0.1-1.0); TOTAL PROTEIN 7.5 g/dL (6.4-8.2)
[2017-08-25] MEDS ORDERED: XANAX 0.5 MG0.5 MG PO (16:14)
[2017-08-25] MEDS ORDERED: PROMS25 WY RECTAL (18:50)
== END 2017-08-24 22:31 | disposition home or self-care (01) ==
LOC: ER 19:29
PROVIDERS: Emergency Medicine
DX: R11.2 Nausea with vomiting, unspecified (principal); R10.9 Unspecified abdominal pain; I10 Essential (primary) hypertension; E78.00 Pure hypercholesterolemia, unspecified; Z87.891 Personal history of nicotine dependence

== ENCOUNTER 2017-08-25 15:34 | Emergency (ER) | payer BC ==
[~2017-08-25] VITALS: Ht 175.3 cm; Wt 77.1 kg
--- NOTE | ~2017-08-25 | EKG ---
[place] [address] [facility] [place] [address] ELECTROCARDIOGRAM REPORT Name: PRUDENCIO HINES [facility] [id number] Admission: 08/25/17 Attend Phys: Discharge: 08/25/17 Date of : 67 Report #: [id number] THIS REPORT FOR: //name// [facility] ED Test Date: 2017-08-25 Test Time: 17:08:32 Pat Name: PRUDENCIO HINES Department: Room: Gender: M Home Health Provider: JOI : 1965 Requested By: Callum Singh Order Number: [id number] MD: James Arroyo Measurements Intervals [place] Rate: 79 P: 22 [place]: 187 QRS: 13 QRSD: 95 T: 46 QT: 399 QTc: 458 Interpretive Statements Sinus rhythm Anteroseptal infarct, age indeterminate Compared to ECG 05/26/2017 23:44:40 No significant change was found Electronically Signed On 08-26-2017 9:48:32 CDT by James Arroyo [email or web address] <ELECTRONICALLY SIGNED> By: James Arroyo MD, [facility] 08/26/17 0948 D: [id number] James Arroyo MD, FACC /EPI
[2017-08-25] MEDS ORDERED: XANAX 0.5 MG0.5 MG PO (16:14)
[2017-08-25 16:55] LABS: ABSOLUTE NEUTROPHILS 3.6 thou/uL (1.4-8.2); BASOPHILS 0.6 % (0.0-2.0); EOSINOPHILS 1.6 % (0.0-3.0); HEMATOCRIT 37.8 % (42.0-52.0); HEMOGLOBIN 12.5 gm/dL (14.0-18.0); LYMPHOCYTES 35.5 % (24.0-44.0); MCH 29.3 pg (26.0-34.0); MCV 88.7 fL (80.0-100.0); MONOCYTES 8.3 % (1.0-8.0); PLATELET COUNT 272 thou/uL (150-400); RBC 4.26 mil/uL (4.50-6.00); RDW 16.7 % (10.5-14.5); WBC 6.7 thou/uL (4.0-11.0)
[2017-08-25 16:59] LABS: CALCIUM 9.2 mg/dL (8.5-10.1); CREATININE 0.9 mg/dL (0.7-1.3)
[2017-08-25 17:04] LABS: ALBUMIN 3.9 g/dL (3.4-5.0); TOTAL BILIRUBIN 0.2 mg/dL (<0.1-1.0); TOTAL PROTEIN 7.4 g/dL (6.4-8.2)
[2017-08-25] MEDS ORDERED: PROMS25 WY RECTAL (18:50)
== END 2017-08-25 19:19 | disposition home or self-care (01) ==
LOC: ER 15:34
PROVIDERS: Physician Assistant
DX: R10.13 Epigastric pain (principal); R11.2 Nausea with vomiting, unspecified; I10 Essential (primary) hypertension; E78.00 Pure hypercholesterolemia, unspecified; Z87.891 Personal history of nicotine dependence

== ENCOUNTER 2017-09-30 20:53 | Inpatient (IN) | payer BC ==
[~2017-09-30] VITALS: Ht 175.3 cm; Wt 83.3 kg
--- NOTE | ~2017-09-30 | H ---
[facility] [place] [place] [address] HISTORY AND PHYSICAL Name: PRUDENCIO HINES Room #: 417-I ADM IN .R.#: [id number] Admission: 09/30/17 Attend Phys: Ck De La Cruz MD Discharge: Date of : 67 Report #: [id number] THIS REPORT FOR: //name// CC: Jatin De La Cruz DATE OF SERVICE: 10/01/2017 CHIEF COMPLAINT: Abdominal pain and nausea, vomiting. HISTORY OF PRESENT ILLNESS: The patient is a 52-year-old gentleman who came to the Emergency Room with persistent abdominal pain and nausea and vomiting. He had left lower quadrant pain and was seen in another ER earlier today. He reports that a CT and lab work were done which were unremarkable, and he was discharged home. 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 He has had multiple endoscopies by recall without much pathology. I believe the last year he had some surgical removal of a rectal adenoma or a skin tag that could have been the source of some bleeding he was experiencing last year; however, he continues to have episodes of nausea and vomiting. He said he was hospitalized recently and underwent endoscopy where he was diagnosed with Zara esophagitis. His insurance would not cover the ketaconazole and therefore he took Diflucan, which he says he does not think it helped. PAST MEDICAL HISTORY: HIV, history of pancreatitis, history of appendicitis with appendectomy, I believe in 2016. History of colorectal polyps with resection in 2017. History of C. diff infection, hypertension, dyslipidemia, anxiety, depression, chronic right thoracic back pain, chronic left lower quadrant abdominal pain. PAST SURGICAL HISTORY: Appendectomy. FAMILY HISTORY: Noncontributory. SOCIAL HISTORY: He lives with his partner. 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 Prior tobacco history, but none currently. No alcohol history. ALLERGIES: No known drug allergies. MEDICATIONS: Omeprazole, Xanax, Ambien, Lexiva, Lexapro, multivitamin, Zestril, Lipitor Epzicom, Norvir, B12, testosterone, propranolol. REVIEW OF SYSTEMS: He denies headache, chest pain, shortness of breath, dysuria, myalgias, arthralgia, syncope or fall. [address] [address] HISTORY AND PHYSICAL Name: PRUDENCIO HINES Room #: 417-I [facility] IN ..#: [id number] Admission: 09/30/17 Attend Phys: Ck De La Cruz MD Discharge: Date of : 67 Report #: [id number] OBJECTIVE: VITAL SIGNS: Temperature 36.9, pulse 76, respirations 12, blood pressure 108/66, O2 sat 95% on room air. GENERAL: He is awake and alert, in no distress. HEAD AND NECK: Unremarkable. LUNGS: Clear. HEART: Regular. ABDOMEN: Soft, hypoactive bowel sounds, tender in the left lower quadrant. No palpable mass. EXTREMITIES: No cyanosis, clubbing or edema. NEUROLOGIC: Motor strength intact. Basic lab work was unremarkable. ASSESSMENT: 1. Left lower quadrant abdominal pain. 2. Nausea and vomiting. 3. Recent diagnosis of Zara esophagitis. 4. Human immunodeficiency virus. 5. Hypertension. PLAN: Usual medications from home will be continued, and he has been on a clear liquid diet. GI Service will assess and see whether he needs a repeat upper endoscopy on the basis of recent Zara esophagitis. The left lower quadrant abdominal pain has been an ongoing issue with no definitive diagnosis or resolution. He does not appear, at least clinically on exam or assessment through ER that he has a surgical abdomen. We will try to track down his recent CT report. <ELECTRONICALLY SIGNED> By: Ck De La Cruz MD 10/02/17 0900 1201 1230 Ck De La Cruz MD /nt
--- NOTE | ~2017-09-30 | D ---
[facility] [place] [address] DISCHARGE SUMMARY Name: PRUDENCIO HINES Room #: 417-I [facility] IN M.R.#: [id number] Admission: 09/30/17 Attend Phys: Ck De La Cruz MD Discharge: 10/03/17 Date of : 67 Report #: [id number] THIS REPORT FOR: //name// CC: Jatin De La Cruz DATE OF SERVICE: 10/03/2017 FINAL DIAGNOSES: 1. Abdominal pain, left lower quadrant. 2. Internal hemorrhoids. 3. Gastritis. PROCEDURES: 1. Esophagogastroduodenoscopy. 2. Colonoscopy. HOSPITAL COURSE: The patient was admitted again with abdominal pain. He had been seen at another ER and failed outpatient treatment. CT was reported as unremarkable. He was given pain control and IV fluids overnight, symptoms improved. His nausea resolved. GI service followed him. EGD was performed, which showed mild gastritis, but no ulcer. There was no sign of fungal esophagitis. The following day, colonoscopy was performed, which showed diverticulosis, a colon polyp was biopsied and internal hemorrhoids. There was no bleeding or other acute pathology. Ultimately, the plan was hydrocortisone suppositories twice a day. He had no other interval complication. DISPOSITION: He will be discharged to home to resume all usual medications, diet, activity, and hydrocortisone suppositories twice a day for 2 weeks. Follow up with me as needed. He already has a standing appointment with Dr. Nunn. Follow up with GI as needed. By: [id number] Ck De La Cruz MD /nt
--- NOTE | ~2017-09-30 | EKG ---
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: RAFAEL : 1965 Requested By: Mj Holguin Order Number: [id number] MD: James Arroyo Measurements Intervals Josephine Rate: 71 P: 45 ND: 183 QRS: 26 QRSD: 102 T: 42 QT: 403 QTc: 438 Interpretive Statements Sinus rhythm No significant abnormality Compared to ECG 08/25/2017 17:08:32 ST (T wave) deviation now present Myocardial infarct finding no longer present Electronically Signed On 10-01-2017 7:54:15 CDT by James Arroyo [email or web address] <ELECTRONICALLY SIGNED> By: James Arroyo MD, [facility] 10/01/17 0754 [id number] 215 James Arroyo MD, [facility] /EPI
[2017-09-30 21:00] VITALS: BP 148/81; BP 160/123
[2017-09-30 22:07] LABS: ABSOLUTE NEUTROPHILS 1.8 thou/uL (1.4-8.2); BASOPHILS 0.5 % (0.0-2.0); HEMATOCRIT 35.3 % (42.0-52.0); HEMOGLOBIN 11.4 gm/dL (14.0-18.0); LYMPHOCYTES 44.9 % (24.0-44.0); MCH 28.4 pg (26.0-34.0); MCHC 32.4 g/dL (28.0-37.0); MCV 87.8 fL (80.0-100.0); MONOCYTES 11.9 % (1.0-8.0); PLATELET COUNT 280 thou/uL (150-400); POLYS 40.7 % (36.0-66.0); RBC 4.02 mil/uL (4.50-6.00); RDW 17.3 % (10.5-14.5); WBC 4.3 thou/uL (4.0-11.0)
[2017-09-30 22:14] LABS: ANION GAP 6 mmol/L (7-16); BUN 8 mg/dL (7-18); CALCIUM 8.7 mg/dL (8.5-10.1); CHLORIDE 106 mmol/L (98-107); CO2 27 mmol/L (21-32); CREATININE 1.1 mg/dL (0.7-1.3); GLUCOSE 100 mg/dL (74-106); POTASSIUM 3.8 mmol/L (3.5-5.1); SODIUM 139 mmol/L (136-145)
[2017-09-30 22:18] LABS: URINE BILIRUBIN NEGATIVE (Negative); URINE BLOOD NEGATIVE (Negative); URINE CLARITY CLEAR; URINE COLOR YELLOW; URINE GLUCOSE-RANDOM* NEGATIVE (Negative); URINE KETONES NEGATIVE (Negative); URINE LEUKOCYTES-REFLEX NEGATIVE (Negative); URINE NITRITE-REFLEX NEGATIVE (Negative); URINE PROTEIN (DIPSTICK) NEGATIVE (Negative); URINE UROBILINOGEN 0.2 E.U./dl (0.2-1.0)
[2017-09-30 22:19] LABS: APTT 27.1 Seconds (24.5-32.8)
[2017-09-30 22:22] LABS: LIPASE 104 U/L (73-393); MAGNESIUM 2.3 mg/dL (1.8-2.4); SGOT 25 U/L (15-37); SGPT 23 U/L (30-65); TOTAL BILIRUBIN 0.4 mg/dL (<0.1-1.0); TOTAL PROTEIN 7.3 g/dL (6.4-8.2); TROPONIN-I < 0.04 ng/mL (<0.06)
[2017-09-30 23:22] VITALS: BP 119/82
[2017-09-30 23:37] VITALS: BP 116/74
[2017-09-30] MEDS ORDERED: AMBIEN 5 MG TABL5 M1 PO (23:48)
[2017-10-01 04:01] VITALS: BP 94/58
[2017-10-01 05:23] LABS: MCH 28.7 pg (26.0-34.0); MCHC 32.4 g/dL (28.0-37.0); MCV 88.3 fL (80.0-100.0); RBC 3.51 mil/uL (4.50-6.00); RDW 17.3 % (10.5-14.5); WBC 4.4 thou/uL (4.0-11.0)
[2017-10-01 07:36] VITALS: BP 108/66
[2017-10-01 14:28] VITALS: BP 128/76
[2017-10-01 19:30] VITALS: BP 124/71
[2017-10-02 04:20] VITALS: BP 117/71
[2017-10-02 07:30] VITALS: BP 122/79
[2017-10-02 11:31] VITALS: BP 122/79
[2017-10-02 15:00] VITALS: BP 126/79
[2017-10-02 19:40] VITALS: BP 144/79
[2017-10-03 03:34] VITALS: BP 124/76
[2017-10-03 09:45] VITALS: BP 124/76
[2017-10-03] MEDS ORDERED: HYDROCORTISONE30 G9 RECTAL (14:04)
[2017-10-03 15:13] VITALS: BP 124/76
[2017-10-03 15:17] VITALS: BP 124/76
[2017-10-03 16:32] VITALS: BP 124/76
== END 2017-10-03 16:43 | disposition home or self-care (01) | DRG 392 ==
LOC: ER 20:53 → 4E 22:54 → EROBS 22:54 → 4E 23:31
PROVIDERS: Emergency Medicine
PROC: 0DB68ZX Excision of Stomach, Via Natural or Artificial Opening Endoscopic, Diagnostic (ICD-10-PCS; principal; 2017-10-01)
PROC: 0DBE8ZX Excision of Large Intestine, Via Natural or Artificial Opening Endoscopic, Diagnostic (ICD-10-PCS; 2017-10-03)
DX: K52.9 Noninfective gastroenteritis and colitis, unspecified (principal); K29.00 Acute gastritis without bleeding; I10 Essential (primary) hypertension; E78.00 Pure hypercholesterolemia, unspecified; G89.4 Chronic pain syndrome; I49.3 Ventricular premature depolarization; K64.8 Other hemorrhoids; K57.30 Diverticulosis of large intestine without perforation or abscess without bleeding; E78.5 Hyperlipidemia, unspecified; K63.5 Polyp of colon; F41.9 Anxiety disorder, unspecified; F32.9 Major depressive disorder, single episode, unspecified; Z87.81 Personal history of (healed) traumatic fracture; Z90.49 Acquired absence of other specified parts of digestive tract; Z87.891 Personal history of nicotine dependence; Z98.1 Arthrodesis status; Z79.899 Other long term (current) drug therapy
CPT/HCPCS: 10183; 10783; 62110; 62900; 70005

== ENCOUNTER → 2018-03-23 | Outpatient (CLI) | payer BC ==
[~2018-03-23] MED LIST changes: +AMBIEN 5 MG TABL5 M1 PO; +HYDROCORTISONE30 G9 RECTAL
== END ==
LOC: RAD 10:52
DX: J44.9 Chronic obstructive pulmonary disease, unspecified (principal); Z87.891 Personal history of nicotine dependence

== ENCOUNTER 2018-04-24 22:16 | Inpatient (IN) | payer BC ==
[~2018-04-24] VITALS: Ht 175.3 cm; Wt 83.3 kg
--- NOTE | ~2018-04-24 | HC ---
[facility] [place] [address] CONSULTATION Name: PRUDENCIO HINES Room #: 220-P [facility] IN M.R.#: [id number] Admission: 04/25/18 Attend Phys: Ck De La Cruz MD Discharge: 04/26/18 Date of : 67 Report #: [id number] THIS REPORT FOR: //name// CC: Jatin Nunn DATE OF SERVICE: 04/25/2018 HISTORY OF PRESENT ILLNESS: The patient is a 53-year-old male with HIV who I have been asked to see for further evaluation of ongoing abdominal pain, left lower quadrant as well as intermittent rectal bleeding. He has alternating constipation and diarrhea. He had EGD and colonoscopy done approximately 48 hours ago, which revealed only small internal hemorrhoids and some grade 1 erosive esophagitis. He presented with increasing abdominal pain left lower quadrant and had a CT scan, which revealed no significant abnormality. The patient does take pain medications on a daily basis. PAST MEDICAL HISTORY: Well outlined in the chart, but includes cervical fusion, HIV, hypertension, hyperlipidemia, pancreatitis, diverticulitis. MEDICATIONS AT HOME: Include omeprazole, alprazolam, metoclopramide, Lexiva, Lexapro, lisinopril, atorvastatin, Epzicom, Norvir, vitamin B12 and testosterone. ALLERGIES: He is allergic to no medications. FAMILY HISTORY AND SOCIAL HISTORY: Otherwise noncontributory. REVIEW OF SYSTEMS: Negative for weight loss, weakness or fatigue. He denies head, EYES, ears, nose or throat complaints. Denies chest pain, chest palpitation, chest pressure, cough, shortness of breath, wheezing, genitourinary, musculoskeletal or neuropsychiatric complaints beyond that mentioned above. PHYSICAL EXAMINATION: VITAL SIGNS: Afebrile, vital signs stable. HEENT: Nonicteric. NECK: No JVD, thyromegaly or bruits. CARDIOVASCULAR: Regular. LUNGS: Clear. ABDOMEN: Soft, but tender in the left lower quadrant. No rebound or guarding, but tender to deep palpation. No stigmata of chronic liver disease. No abnormal masses or bruits. EXTREMITIES: No clubbing, cyanosis or edema. NEUROLOGIC: Grossly intact. [facility] [address] [place] [address] CONSULTATION Name: PRUDENCIO HINES Room #: 220-P [facility] IN [facility].#: [id number] Admission: 04/25/18 Attend Phys: Ck De La Cruz MD Discharge: 04/26/18 Date of : 67 Report #: [id number] RECTAL: Deferred. PERTINENT LABORATORY DATA: Include white count 7.4, hemoglobin 11.9. Serum chemistry normal except for potassium 3.4, calcium 8.0. Liver test normal. Venous bicarbonate normal. INR 1.0. CT abdomen and pelvis reveals no inflammatory process or bowel obstruction. In summary, the patient presents with HIV under remission due to antiviral medications. He has a normal white count and no evidence of AIDS. He has had some opportunistic infections including yeast esophagitis, but does not have chronic diarrhea. He has had normal workup recently including colonoscopy, EGD and a CT of the abdomen. A small bowel source for this pain is possible; however, the CT scan does not suggest any significant abnormality. At this point, I would advance his diet, avoid narcotics as this could exacerbate narcotic bowel and he is chronically on narcotics at home, and follow. Thanks a lot for allowing me to participate in this patient's care. <ELECTRONICALLY SIGNED> By: Jatin Garcia MD 04/29/18 0853 1315 2043 Jairo Warren MD /nt
--- NOTE | ~2018-04-24 | H ---
[facility] [place] [address] HISTORY AND PHYSICAL Name: PRUDENCIO HINES Room #: 455-P ADM IN M.R.#: [id number] Admission: 04/25/18 Attend Phys: Ck De La Cruz MD Discharge: Date of : 67 Report #: [id number] THIS REPORT FOR: //name// CC: Jatin Nunn DATE OF SERVICE: 04/25/2018 CHIEF COMPLAINT: This is a 53-year-old male with rectal bleeding and abdominal pain. HISTORY OF PRESENT ILLNESS: This is the patient who has been through an extensive evaluation over the last few years with ongoing issues with intermittent rectal bleeding and left lower quadrant abdominal pain, and has had numerous CAT scans and numerous ER visits and numerous upper and lower endoscopies all of which really have not shown significant etiology. His past medical history is significant because he does have HIV, but he is currently on retrovirals, and even though his counts were a little low, no active evidence of infection. Past history is noteworthy for apparently history of some diverticulitis, pancreatitis, peptic ulcers. He just had CT scan yesterday in the ER and upper and lower endoscopies a couple of days ago, which really did not show anything significant. PAST MEDICAL AND SURGICAL HISTORY: Past history is noteworthy for cervical fusion. He has HIV, hypertension, hyperlipidemia, history of pancreatitis and diverticulitis. MEDICATIONS: He is currently on omeprazole, alprazolam, metoclopramide, Lexiva, Lexapro, lisinopril, atorvastatin, Epzicom, Norvir, vitamin B12, testosterone. ALLERGIES: No known drug allergies. FAMILY HISTORY: Otherwise negative. SOCIAL HISTORY: Otherwise negative. REVIEW OF SYSTEMS: Otherwise negative. PHYSICAL EXAMINATION: GENERAL: Shows him to be in absolutely no distress. He looks well and is completely oriented and awake. HEENT: Otherwise negative. NECK: Supple, without thyromegaly or adenopathy. CHEST: Clear. HEART: Showed regular rate and rhythm, without murmur. [facility] [address] [email or web address] [address] HISTORY AND PHYSICAL Name: FLORAPRUDENCIO LEVY Room #: [address] [place] [address] [place] ..#: [id number] Admission: 04/25/18 Attend Phys: Ck De La Cruz MD Discharge: Date of : 67 Report #: [id number] ABDOMEN: Soft. Bowel sounds were present. He was tender in the left lower quadrant, but what is interesting, it was tenderness on just minimal palpation of the abdominal wall. EXTREMITIES: Otherwise negative. NEUROLOGIC: Normal. LABORATORY DATA: Stable. ASSESSMENT AND PLAN: This is the patient with a longstanding history of abdominal pain, GI bleeding. At this point, I am concerned that this may well be a simpler process than initially thought which could be that he has an abdominal wall issue and possibly an irritated skin nerve that could be causing some of this difficulty, and also it is possible that his bleeding is just diverticular or hemorrhoidal and that a lot of his GI complaints are related to dietary issues, in that he has never had a restrictive diet, specifically gluten to see if this will help. So, we will see how the next day or two goes, but I am hopeful to help clarify his situation because there has just been limited evidence of serious underlying pathology and he is not showing any evidence of significant decline physiologically. By: [id number] [id number] Wolfgang Arreola MD /nt
[2018-04-24 22:16] VITALS: BP 169/111
[2018-04-24] MEDS ORDERED: PHENERGAN 25 MG25 M1 PO (22:32)
[2018-04-24] MEDS ORDERED: REGLAN 10 MG TA10 MG PO (22:32)
[2018-04-24 22:56] LABS: ABSOLUTE NEUTROPHILS 3.4 thou/uL (1.4-8.2); BASOPHILS 0.7 % (0.0-2.0); EOSINOPHILS 2.1 % (0.0-3.0); HEMATOCRIT 35.9 % (42.0-52.0); HEMOGLOBIN 11.9 gm/dL (14.0-18.0); LYMPHOCYTES 43.1 % (24.0-44.0); MCH 28.7 pg (26.0-34.0); MCHC 33.2 g/dL (28.0-37.0); MCV 86.6 fL (80.0-100.0); MONOCYTES 8.5 % (1.0-8.0); PLATELET COUNT 271 thou/uL (150-400); POLYS 45.6 % (36.0-66.0); RBC 4.14 mil/uL (4.50-6.00); RDW 17.9 % (10.5-14.5); WBC 7.4 thou/uL (4.0-11.0)
[2018-04-24 23:04] LABS: CREATININE 0.9 mg/dL (0.7-1.3); POTASSIUM 3.4 mmol/L (3.5-5.1)
[2018-04-24 23:09] LABS: APTT 25.8 Seconds (24.5-32.8); PROTIME 10.1 Seconds (9.3-11.4)
[2018-04-24 23:10] LABS: ALBUMIN 3.8 g/dL (3.4-5.0); TOTAL BILIRUBIN 0.4 mg/dL (<0.1-1.0); TOTAL PROTEIN 7.2 g/dL (6.4-8.2)
[2018-04-25 02:10] VITALS: BP 133/85
[2018-04-25 02:22] VITALS: BP 134/91
[2018-04-25 07:44] VITALS: BP 131/81
[2018-04-25 15:20] VITALS: BP 133/79
[2018-04-25 19:23] VITALS: BP 138/79
[2018-04-26 04:47] VITALS: BP 111/66
[2018-04-26 08:33] VITALS: BP 122/9
[2018-04-26 13:48] VITALS: BP 122/9
[2018-04-26 14:22] VITALS: BP 122/9
== END 2018-04-26 14:23 | disposition home or self-care (01) | DRG 379 ==
LOC: ER 22:16 → 4W 04-25 02:16 → SICU 04-26 08:24
PROVIDERS: Emergency Medicine
DX: K92.2 Gastrointestinal hemorrhage, unspecified (principal); I10 Essential (primary) hypertension; E78.00 Pure hypercholesterolemia, unspecified; Z21 Asymptomatic human immunodeficiency virus [HIV] infection status; Z87.81 Personal history of (healed) traumatic fracture; Z90.49 Acquired absence of other specified parts of digestive tract; Z87.891 Personal history of nicotine dependence; Z98.1 Arthrodesis status; Z79.899 Other long term (current) drug therapy
CPT/HCPCS: 10040

== ENCOUNTER 2018-05-11 20:13 | Emergency (ER) | payer BC ==
[~2018-05-11] VITALS: Ht 175.3 cm; Wt 79.4 kg
[2018-05-11] MEDS ORDERED: BENTYL 20 MG TA20 M1 PO (20:54)
[2018-05-11 21:06] LABS: ABSOLUTE NEUTROPHILS 3.9 thou/uL (1.4-8.2); BASOPHILS 0.8 % (0.0-2.0); EOSINOPHILS 1.5 % (0.0-3.0); HEMATOCRIT 36.4 % (42.0-52.0); HEMOGLOBIN 12.7 gm/dL (14.0-18.0); LYMPHOCYTES 36.3 % (24.0-44.0); MCH 29.8 pg (26.0-34.0); MONOCYTES 7.2 % (1.0-8.0); PLATELET COUNT 293 thou/uL (150-400); POLYS 54.2 % (36.0-66.0); RBC 4.28 mil/uL (4.50-6.00); RDW 17.7 % (10.5-14.5); WBC 7.2 thou/uL (4.0-11.0)
[2018-05-11 21:11] LABS: CALCIUM 8.2 mg/dL (8.5-10.1); CREATININE 0.9 mg/dL (0.7-1.3); POTASSIUM 3.7 mmol/L (3.5-5.1)
[2018-05-11 21:17] LABS: ALBUMIN 3.7 g/dL (3.4-5.0); TOTAL BILIRUBIN 0.4 mg/dL (<0.1-1.0)
[2018-05-11 21:19] LABS: TOTAL PROTEIN 7.3 g/dL (6.4-8.2)
[2018-05-11 21:45] LABS: APTT 26.9 Seconds (24.5-32.8)
[2018-05-11 22:22] LABS: URINE BILIRUBIN NEGATIVE (Negative); URINE BLOOD NEGATIVE (Negative); URINE CLARITY CLEAR; URINE COLOR YELLOW; URINE GLUCOSE-RANDOM* NEGATIVE (Negative); URINE KETONES NEGATIVE (Negative); URINE LEUKOCYTES NEGATIVE (Negative); URINE NITRITE NEGATIVE (Negative); URINE PROTEIN (DIPSTICK) NEGATIVE (Negative); URINE UROBILINOGEN 0.2 E.U./dl (0.2-1.0)
[2018-05-11 22:47] VITALS: BP 136/86
== END 2018-05-11 22:48 | disposition home or self-care (01) ==
LOC: ER 20:13
PROVIDERS: Emergency Medicine
DX: R10.32 Left lower quadrant pain (principal); K92.0 Hematemesis; K62.89 Other specified diseases of anus and rectum; I10 Essential (primary) hypertension; E78.00 Pure hypercholesterolemia, unspecified; Z87.891 Personal history of nicotine dependence; Z91.09 Other allergy status, other than to drugs and biological substances

== ENCOUNTER 2018-05-12 22:29 | Emergency (ER) | payer BC ==
[~2018-05-12] VITALS: Ht 175.3 cm; Wt 79.4 kg
[2018-05-12 22:36] VITALS: BP 153/84
[2018-05-13 00:32] LABS: ABSOLUTE NEUTROPHILS 3.4 thou/uL (1.4-8.2); BASOPHILS 1.2 % (0.0-2.0); EOSINOPHILS 2.3 % (0.0-3.0); HEMATOCRIT 37.2 % (42.0-52.0); HEMOGLOBIN 12.8 gm/dL (14.0-18.0); LYMPHOCYTES 42.9 % (24.0-44.0); MCH 29.3 pg (26.0-34.0); MCHC 34.4 g/dL (28.0-37.0); MCV 85.2 fL (80.0-100.0); MONOCYTES 8.4 % (1.0-8.0); PLATELET COUNT 283 thou/uL (150-400); POLYS 45.2 % (36.0-66.0); RBC 4.37 mil/uL (4.50-6.00); RDW 17.5 % (10.5-14.5); WBC 7.4 thou/uL (4.0-11.0)
[2018-05-13 00:45] LABS: ANION GAP 9 mmol/L (7-16); BUN 13 mg/dL (7-18); CALCIUM 8.6 mg/dL (8.5-10.1); CHLORIDE 107 mmol/L (98-107); CO2 22 mmol/L (21-32); CREATININE 1.1 mg/dL (0.7-1.3); POTASSIUM 3.7 mmol/L (3.5-5.1); SODIUM 138 mmol/L (136-145)
[2018-05-13 00:53] LABS: ALBUMIN 3.6 g/dL (3.4-5.0); LIPASE 304 U/L (73-393); TOTAL BILIRUBIN 0.3 mg/dL (<0.1-1.0); TOTAL PROTEIN 7.2 g/dL (6.4-8.2); TROPONIN-I <0.06 ng/mL (<0.06)
[2018-05-13 00:54] LABS: GLUCOSE 128 mg/dL (74-106)
[2018-05-13 00:55] LABS: SGOT 30 U/L (15-37); SGPT 27 U/L (30-65)
== END 2018-05-13 01:02 | disposition left against medical advice (07) ==
LOC: ER 22:29
PROVIDERS: Student in an Organized Health Care Education/Training Program
DX: R10.9 Unspecified abdominal pain (principal); R11.10 Vomiting, unspecified

== ENCOUNTER 2020-03-16 18:06 | Emergency (ER) | payer BC ==
[~2020-03-16] VITALS: Ht 175.3 cm; Wt 81.7 kg
[~2020-03-16 18:06] MED LIST changes: +BIKTARVY 50-201 EACH PO; +CARAFATE1 GM PO; +HYDROCHLOROTHIA25 M2 PO; +PROTONIX40 M4 PO; +TRAZODONE HCL50 MG PO; +ZOLOFT50 M1 PO
[2020-03-16 18:45] LABS: ABSOLUTE NEUTROPHILS 3.5 thou/uL (1.4-8.2); BASOPHILS 0.7 % (0.0-2.0); EOSINOPHILS 3.1 % (0.0-3.0); HEMATOCRIT 39.6 % (42.0-52.0); HEMOGLOBIN 13.1 gm/dL (14.0-18.0); LYMPHOCYTES 33.9 % (24.0-44.0); MCH 30.5 pg (26.0-34.0); MCV 92.6 fL (80.0-100.0); MONOCYTES 10.5 % (1.0-8.0); PLATELET COUNT 331 thou/uL (150-400); POLYS 51.8 % (36.0-66.0); RBC 4.28 mil/uL (4.50-6.00); RDW 16.4 % (10.5-14.5); URINE BILIRUBIN NEGATIVE (Negative); URINE BLOOD NEGATIVE (Negative); URINE CLARITY CLEAR; URINE COLOR YELLOW; URINE GLUCOSE-RANDOM* NEGATIVE (Negative); URINE KETONES NEGATIVE (Negative); URINE LEUKOCYTES-REFLEX NEGATIVE (Negative); URINE NITRITE-REFLEX NEGATIVE (Negative); URINE PROTEIN (DIPSTICK) NEGATIVE (Negative); URINE UROBILINOGEN 0.2 E.U./dl (0.2-1.0); WBC 6.7 thou/uL (4.0-11.0)
[2020-03-16 18:58] LABS: CALCIUM 9.2 mg/dL (8.5-10.1); CREATININE 1.2 mg/dL (0.7-1.3); POTASSIUM 3.9 mmol/L (3.5-5.1)
[2020-03-16 19:04] LABS: ALBUMIN 4.4 g/dL (3.4-5.0); TOTAL BILIRUBIN 0.5 mg/dL (0.2-1.0); TOTAL PROTEIN 8.2 g/dL (6.4-8.2)
[2020-03-16] MEDS ORDERED: NORCO 5-325 TA1 EAC2 PO (23:51)
[2020-03-16] MEDS ORDERED: ONDANSETRON ODT8 MG PO (23:51)
[2020-03-17] MEDS ORDERED: FLOMAX0.4 MG PO ×2 (00:19→00:23)
[2020-03-17 00:30] VITALS: BP 171/116
== END 2020-03-17 00:30 | disposition home or self-care (01) ==
LOC: ER 18:06
PROVIDERS: Emergency Medicine
DX: R33.9 Retention of urine, unspecified (principal); R11.2 Nausea with vomiting, unspecified; R19.7 Diarrhea, unspecified; B20 Human immunodeficiency virus [HIV] disease; I10 Essential (primary) hypertension; E78.5 Hyperlipidemia, unspecified; Z87.891 Personal history of nicotine dependence; Z79.899 Other long term (current) drug therapy

== ENCOUNTER 2021-04-29 13:52 | Emergency (ER) | payer BC ==
[~2021-04-29] VITALS: Ht 175.3 cm; Wt 81.7 kg
[~2021-04-29 13:52] MED LIST changes: +FLOMAX0.4 MG PO; +NORCO 5-325 TA1 EAC2 PO; +ONDANSETRON ODT8 MG PO
[2021-04-29 16:30] LABS: URINE BILIRUBIN NEGATIVE (Negative); URINE BLOOD NEGATIVE (Negative); URINE CLARITY CLEAR; URINE COLOR YELLOW; URINE GLUCOSE-RANDOM* NEGATIVE (Negative); URINE KETONES NEGATIVE (Negative); URINE LEUKOCYTES-REFLEX NEGATIVE (Negative); URINE NITRITE-REFLEX NEGATIVE (Negative); URINE PROTEIN (DIPSTICK) NEGATIVE (Negative); URINE UROBILINOGEN 0.2 E.U./dl (0.2-1.0)
[2021-04-29 17:51] LABS: HEMATOCRIT 42.9 % (42.0-52.0); HEMOGLOBIN 13.8 gm/dL (14.0-18.0); MCH 27.4 pg (26.0-34.0); MCHC 32.1 g/dL (28.0-37.0); MCV 85.4 fL (80.0-100.0); PLATELET COUNT 250 thou/uL (150-400); RBC 5.03 mil/uL (4.50-6.00); WBC 5.4 thou/uL (4.0-11.0)
[2021-04-29 17:59] LABS: CALCIUM 8.7 mg/dL (8.5-10.1); CREATININE 0.9 mg/dL (0.7-1.3); POTASSIUM 3.3 mmol/L (3.5-5.1)
[2021-04-29 18:05] LABS: ALBUMIN 3.8 g/dL (3.4-5.0); TOTAL BILIRUBIN 0.3 mg/dL (0.2-1.0); TOTAL PROTEIN 7.2 g/dL (6.4-8.2)
[2021-04-29 18:06] LABS: AMP/METHAMP Negative (Negative); BARBITURATES Negative (Negative); BENZODIAZEPINES POSITIVE (Negative); COCAINE Negative (Negative); METHADONE Negative (Negative); OPIATES Negative (Negative); PCP Negative (Negative)
[2021-04-29 18:43] VITALS: BP 169/116
[2021-04-29 19:41] LABS: ABSOLUTE NEUTROPHILS 3.3 thou/uL (1.4-8.2); ATYPICAL LYMPHS 3 %
== END 2021-04-29 18:43 | disposition home or self-care (01) ==
LOC: ER 13:52
PROVIDERS: Emergency Medicine
DX: R10.32 Left lower quadrant pain (principal); R11.2 Nausea with vomiting, unspecified; I10 Essential (primary) hypertension; E78.00 Pure hypercholesterolemia, unspecified; Z87.891 Personal history of nicotine dependence; Z79.899 Other long term (current) drug therapy